=== PATIENT | male | born 1935 ===

== ENCOUNTER 2021-08-04 12:01 | Emergency (ER) | payer BC ==
[~2021-08-04] VITALS: Ht 185.4 cm; Wt 82.6 kg
[2021-08-04] MEDS ORDERED: LEVO-T50 MCG (12:51)
[2021-08-04] MEDS ORDERED: TAMS0.4C PO (12:52)
[2021-08-04] MEDS ORDERED: XANAX0.25 MG PO ×2 (12:53→16:33)
== END 2021-08-04 16:40 | disposition home or self-care (01) ==
LOC: ER 12:01
DX: F41.9 Anxiety disorder, unspecified (principal); R06.02 Shortness of breath